=== PATIENT | female | born 1945 | race Caucasian/White ===

== ENCOUNTER → 2016-10-10 | Outpatient (CLI) | payer OTHER, MEDICARE ==
--- NOTE | 2016-10-10 16:38 | MR ---
Unenhanced MRI of the Lumbar Spine Clinical History: 71-year-old female with bilateral buttock sciatica, a prior history of an L1 compr ession fracture, and osteoporosis. Rule out nerve compression or central canal stenosis. ICD-10 Diagnostic Code: M54.30. Technique: Sagittal T1, T2, and STIR sequences were from the T10 level caudally through the sacrococ cygeal, and axial FSE T1- and T2-weighted sequences were also acquired from T12-L1 through L5-S1. Comparison Study: DEXA scan, dated July 31, 2014 (retrieved from archive status). Findings: Again noted is a moderate L1 compression fracture, with dorsal cortical buckling but no po sterior retropulsion. The overall morphology is unchanged from a lateral spine image on the DEXA sca n from 2013. There is 5 mm of L5 anterolisthesis above S1, also similar to the previous exam. There is degenerative disk desiccation at all levels. 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 The conus medullaris has a normal morphology, terminating at the L1 level. The visualized prevertebral soft tissues are normal. There is some fatty infiltration of the paraspinal musculature. T10-T11, T11-T12 levels appear normal, with no central canal or neural foraminal stenosis. At the T12-L1 level, there is the aforementioned moderate old L1 compression fracture. There is no f ocal disk herniation, or significant canal or neural foraminal impingement. At the L1-L2 level, there is no focal disk herniation, canal stenosis, or neural foraminal impingemen t. At the L2-L3 level, there is preservation of disk space height, with some mild disk desiccation. The central canal and neural foramina remain patent. There is a mild degree of bilateral facet hypertro phy. At the L3-L4 level, there is preservation of disk space height, with some mild disk desiccation and n o focal disk herniation, canal stenosis, or neural foraminal impingement. Moderate bilateral facet h ypertrophy is seen. At the L4-L5 level, there is preservation of disk space height, with some degenerative disk desiccati on and broad-based differential disk bulging. There is fyvdowtt-su-mmpxto bilateral facet hypertroph y, with some mild ligamentum flavum thickening. There is an adequate AP canal diameter, and the neur al foramina are relatively patent. At the L5-S1 level, there is the aforementioned grade 1 anterolisthesis. There is severe bilateral f acet hypertrophy, with facet joint effusions. There is broad-based circumferential disk bulging resu lting in a mild degree of central canal stenosis, and isjyvcll-yj-xxswqd bilateral neural foraminal s tenosis. The visualized upper sacrum is normal. The presacral space is normal. Impression: 1. Old moderate compression fracture involving L1 in this patient with osteoporosis, unchanged from July 2014. 2. Multilevel facet hypertrophy, most pronounced from L3-L4 through L5-S1. 3. Grade 1 anterolisthesis at L5-S1, with severe facet degenerative change and bilateral facet joint effusions. There is also broad-based circumferential disk bulging resulting in mild central canal s tenosis and tyeytcxp-fv-bulrar bilateral neural foraminal stenoses. E:JEANNETTE/vanessa
== END ==
LOC: FIMAGING 12:32
PROVIDERS: ATTEND Physician Assistant
DX: M54.30 Sciatica, unspecified side (principal); M81.0 Age-related osteoporosis without current pathological fracture

== ENCOUNTER → 2016-11-17 | Outpatient (CLI) | payer OTHER, MEDICARE | LOC: FIMAGING 14:51 | PROVIDERS: ATTEND Internal Medicine | DX: Z12.39 Encounter for other screening for malignant neoplasm of breast (principal); R92.2 Inconclusive mammogram | CPT/HCPCS: G0206 ==

== ENCOUNTER → 2016-11-20 | Outpatient (CLI) | payer OTHER, MEDICARE | LOC: FIMAGING 11:21 | PROVIDERS: ATTEND Internal Medicine | DX: M81.0 Age-related osteoporosis without current pathological fracture (principal) ==

== ENCOUNTER → 2017-03-22 | Outpatient (CLI) | payer OTHER, MEDICARE | LOC: FIMAGING 11:08 | PROVIDERS: ATTEND Surgery | DX: E21.5 Disorder of parathyroid gland, unspecified (principal); E21.3 Hyperparathyroidism, unspecified | CPT/HCPCS: 78070; A9500 ==

== ENCOUNTER 2017-04-13 09:58 | Emergency (ER) | payer OTHER, MEDICARE ==
[2017-04-13 10:04] VITALS: TEMP 98.1
--- NOTE | 2017-04-13 10:54 | EDPHY ---
H & P Stated Complaint: Not feeling well since surg 2 wks ago; lethargy,SOB, h/a, lump in throat Time Seen by Provider: 04/13/17 10:17 HPI/ROS: CHIEF COMPLAINT: Post-parathyroidectomy concerns This patient is a 72 year old female arriving with her fiancee presenting with multiple complaints following a parathyroidectomy two weeks ago at [facility] with Dr. Beck. She had been diagnosed with hypercalcemia by her primary care provider, Dr. Sutherland. She followed up with Dr. Choe, salesperson florist supplies, who recommended parathyroidectomy. Since her surgery, she has been feeling fatigued and has experienced headaches, indigestion, occasional dysphagia, and cough. She has been taking Tums for calcium replacement and two extra strength Tylenol for headache relief. She has not taken any other medications for relief of indigestion-type symptoms. She has also noted pale bowel movements. She endorses intermittent sore throat. No fever, abdominal pain , chest pain, dysuria, shortness of breath, or other associated symptoms. ROS: Her fiancee states the patient has experienced tenderness in her ankles when he massages her feet, Pain behind medial malleolus bilaterally. No calf pain or swelling. Ten point ROS performed and negative except as mentioned in HPI. - Personal History Current Tetanus Diphtheria and Acellular Pertussis (TDAP): Unsure Tetanus Vaccine Date: WITHIN 10 YRS - Medical/Surgical History PMH: 1. Parathyroidectomy 2016 2. Hypothyroid 3. Osteoporosis 4. Hysterectomy 5. Migraines 6. Cholecystectomy 7. 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 Nonsmoker. Fiancee at bedside. - Physical Exam Exam: General Appearance: Alert, no acute distress. Eyes: Pupils equal and round, no conjunctival injection, no discharge. ENT, Mouth: Mucous membranes are moist, no oropharyngeal erythema or edema. Neck: Surgical incision intact, without swelling, redness, warmth. No lymphadenopathy, supple. Trachea midline. Respiratory: Lungs are clear to auscultation; no wheezes, rales, or rhonchi. Cardiovascular: Regular rate and rhythm; no murmur, rub, or gallop. Gastrointestinal: Abdomen is soft and non tender, no masses or organomegaly, bowel sounds normal. Skin: Warm and dry, no rashes, normal color. Back: Nontender to palpation over the thoracolumbar spine. Extremities: No lower extremity edema, no calf tenderness or swelling. Neurological: Alert and oriented. Moving all four extremities easily and equally. Psychiatric: Normal affect. Constitutional: Initial Vital Signs Temperature (C) 36.7 C 04/13/17 10:00 Heart Rate 65 04/13/17 10:00 Respiratory Rate 18 04/13/17 10:00 Blood Pressure 124/74 H 04/13/17 10:00 O2 Sat (%) 98 04/13/17 10:00 O2 Delivery Mode Room Air Allergies/Adverse Reactions: alendronate sodium [From Fosamax] Allergy (Severe, Verified 04/13/17 10:05) throat closes sumatriptan succinate [From Imitrex] Allergy (Mild, Verified 04/13/17 10:00) FEELS WEIRD ibandronate sodium [From Boniva] Allergy (Unknown, Verified 04/13/17 10:05) triptylines Allergy (Unknown, Uncoded 04/13/17 10:05) Home Medications: Medication Instructions Recorded Atenolol [Tenormin 50 mg (*)] 50 mg PO 04/13/17 Atorvastatin Calcium [Lipitor 40 40 mg PO 04/13/17 mg (*)] Levothyroxine [Synthroid 100 mcg 100 mcg PO DAILY06 04/13/17 (*)] Losartan Potassium [Cozaar 25 mg 25 mg PO 04/13/17 (*)] Meloxicam [Mobic 7.5 mg] 7.5 mg PO 04/13/17 Raloxifene HCl [Evista] 60 mg PO 04/13/17 Ropinirole HCl [Requip 0.5mg] 0.5 mg PO 04/13/17 Sertraline HCl [Zoloft 25mg (*)] 25 mg PO DAILY 04/13/17 clonazePAM [klonoPIN (*)] 1 mg PO 04/13/17 Medical Decision Making ED Course/Re-evaluation: 12:[address] Choe, salesperson florist supplies. She requested labwork, which has been ordered. I also spoke with Dr. Beck and he will see the patient in the ED. I have not found anything that necessitates additional work-up. I suspect that her fatigue stems from recent surgery. No evidence of endocrinologic imbalance- -endocrinology and surgeon will follow labs. No neck edema or problems with incision. I am recommending symptomatic treatment of headache, indigestion. Dr. Beck provided reassurance. Patient discharged home with reassurance. - Data Points Laboratory Results: Laboratory Results 04/13/17 11:05 04/13/17 11:05 Departure - Departure Disposition: Home, Routine, Self-Care Clinical Impression: Fatigue Qualifiers: Fatigue type: other Qualified Code(s): R53.83 - Other fatigue Condition: Good Instructions: Fatigue (ED) Additional Instructions: Keep your scheduled follow-up appointments. Continue medications as advised. Referrals: Gilda Sutherland MD [Primary Care Provider] - As per Instructions Krishna Beck MD [Medical Doctor] - As per Instructions Report Scribed for: Nasra Joy Report Scribed by: Snow Avitia Date of Report: 04/13/17 Time of Report: 12:55 Physician Review and Approval Statement: 04/16/17 06:27 Portions of this chart were entered by a medical chemist. I, Nasra Joy, performed the HPI, MDM, physical exam. I have reviewed the chart and agree with the documentation, as evidenced by my signature.
[2017-04-13 11:16] LABS: % IMMATURE GRANULYOCYTES 0.4 % (0.0-1.1); ABSOLUTE IMMATURE GRANULOCYTES 0.04 10^3/uL (0.00-0.10); ADD DIFF? NO; ADD MORPH? NO; ADD SCAN? NO; ATYPICAL LYMPHOCYTE FLAG 10 (0-99); FRAGMENT RBC FLAG 20 (0-99); HEMATOCRIT 43.3 % (38.0-47.0); HEMOGLOBIN 14.1 g/dL (12.6-16.3); LEFT SHIFT FLG 0 (0-99); LIPEMIA HEMOLYSIS FLAG 80 (0-99); MEAN CELL HEMOGLOBIN 29.1 pg (27.9-34.1); MEAN CELL HEMOGLOBIN CONCENTR. 32.6 g/dL (32.4-36.7); MEAN CELL VOLUME 89.5 fL (81.5-99.8); PLATELET CLUMPS FLAG 10 (0-99); PLATELET COUNT 325 10^3/uL (150-400); RED BLOOD CELL COUNT 4.84 10^6/uL (4.18-5.33); RED CELL DISTRIBUTION WIDTH 13.3 % (11.5-15.2)
[2017-04-13 11:30] LABS: ANION GAP 14 mEq/L (8-16); CALCIUM 10.4 mg/dL (8.5-10.4); CARBON DIOXIDE 22 mEq/l (22-31); CHLORIDE 105 mEq/L (97-110); CREATININE 1.1 mg/dL (0.6-1.0); GLOMERULAR FILTRATION RATE 49; GLUCOSE 88 mg/dL (70-100); POTASSIUM 4.5 mEq/L (3.5-5.2); SODIUM 141 mEq/L (134-144)
[2017-04-13 12:06] VITALS: O2SAT 94
[2017-04-13 13:46] LABS: PTH INTACT NO MINERALS 70.5 pg/ml (10.8-79.4)
[2017-04-13 14:01] VITALS: BP 116/65; PULSE 65; RESP 18
== END 2017-04-13 14:01 | disposition home or self-care (01) ==
DX: R53.83 Other fatigue (principal)

== ENCOUNTER → 2017-07-21 | Outpatient (CLI) | payer OTHER, MEDICARE | LOC: FIMAGING 11:03 | PROVIDERS: ATTEND Internal Medicine | DX: Z12.31 Encounter for screening mammogram for malignant neoplasm of breast (principal) | CPT/HCPCS: G0202 ==

== ENCOUNTER 2017-08-07 15:43 | Emergency (ER) | payer OTHER, MEDICARE ==
--- NOTE | 2017-08-07 16:58 | EDPHY ---
H & P Time Seen by Provider: 08/07/17 15:57 HPI/ROS: This patient presents with chronic left shoulder pain. She has had difficulty sleeping at times last few nights due to the pain increasing without acute injury. She reports 2 months of this pain following a mechanical fall in a dimly lit room where she missed a step and landed hard on the shoulder. She did not have evaluation by a clinician at that time and due to the ongoing symptoms her fiance "talked her into coming in today" for further evaluation. She has tried meloxicam that she has for other musculoskeletal complaints with minimal improvement. Today she took Tylenol in addition at lunch with mild improvement and notes no other exacerbating factors except that the pain seems worse at night. She noticed the shoulder pain more today because they are putting up [place] decorations. Currently it is 7/10 ache. She states the location of the pain is posterior shoulder near the apex. ROS: No fevers or chills no other constitutional symptoms. Neuro: No numbness or tingling to the affected extremity. Musculoskeletal: She also has mild right shoulder ache a similar in nature but much less intensity. Cardiovascular: No discoloration to the left upper extremity. No plethora. Integumentary: No skin rash. 5 point ROS is otherwise negative. 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 General: Pleasant 72-year-old female No acute distress Eyes: Pupils equal and react to light. Extraocular motions are intact. Lungs: No respiratory distress. Cardiac: Brisk capillary refill is intact throughout. Pulses are 2+ and symmetric in the affected extremity. Extremities: Atraumatic normal except for left shoulder Left shoulder: Patient has mild tenderness the posterior shoulder. There is no deformity. She retains full range of motion of her shoulder with only minimal increase in pain with AB duction versus resistance. Clavicle is normal appearance and there is no asymmetry putting the appearance of the 2 shoulders. Skin: No rash or pallor. Neuro: Alert with no sensorimotor deficits to the left upper extremity. The axillary nerve distribution is intact. Initial differential diagnosis: Degenerative joint disease, calcific tendinitis , rotator cuff injury, impingement syndrome, pathologic fracture Constitutional: Initial Vital Signs Temperature (C) 36.6 C 08/07/17 15:48 Heart Rate 68 08/07/17 15:48 Respiratory Rate 12 08/07/17 15:48 Blood Pressure 167/88 H 08/07/17 15:48 O2 Sat (%) 95 12 15:48 O2 Delivery Mode Room Air Allergies/Adverse Reactions: alendronate sodium [From Fosamax] Allergy (Severe, Verified 08/07/17 15:56) throat closes sumatriptan succinate [From Imitrex] Allergy (Mild, Verified 08/07/17 15:56) FEELS WEIRD ibandronate sodium [From Boniva] Allergy (Unknown, Verified 08/07/17 15:56) triptylines Allergy (Unknown, Uncoded 08/07/17 15:56) Home Medications: Medication Instructions Recorded Atenolol [Tenormin 50 mg (*)] 50 mg PO 04/13/17 Atorvastatin Calcium [Lipitor 40 40 mg PO 04/13/17 mg (*)] Levothyroxine [Synthroid 100 mcg 100 mcg PO DAILY06 04/13/17 (*)] Losartan Potassium [Cozaar 25 mg 25 mg PO 04/13/17 (*)] Meloxicam [Mobic 7.5 mg] 7.5 mg PO 04/13/17 Raloxifene HCl [Evista] 60 mg PO 04/13/17 Ropinirole HCl [Requip 0.5mg] 0.5 mg PO 04/13/17 Sertraline HCl [Zoloft 25mg (*)] 25 mg PO DAILY 04/13/17 Lidocaine 5% [Lidoderm 5% Patch 1 ea TD DAILY #20 patch 08/07/17 (*)] MDM/Departure - MDM Diagnostics: Shoulder x-ray: Normal by my interpretation Imaging: I viewed and interpreted images myself ED Course/Re-evaluation: Discussion: Patient presents with shoulder plane of unclear etiology without significant radiographic abnormalities and minimal exam findings. Patient may have chronic rotator cuff injury or go deconditioning with shoulder pain. I counseled her regarding gentle physical therapy exercises for shoulder and plan to follow up with orthopedics for further evaluation. - Depart Disposition: Home, Routine, Self-Care Clinical Impression: Shoulder pain, left Qualifiers: Chronicity: acute Qualified Code(s): M25.512 - Pain in left shoulder Condition: Good Instructions: Shoulder Pain (ED) Additional Instructions: Diagnosis: Shoulder pain Plan: Continue a nonsteroidal anti-inflammatories such as Aleve or ibuprofen. Add Tylenol in addition if needed. For nighttime, consider lidocaine patch. Consider gentle rehab exercises described-minimal weight with large circles or unebbz-do-qeckv. A lso, follow up with Dr. Kerns, orthopedics for further evaluation for any ongoing symptoms. Prescriptions: Lidocaine 5% [Lidoderm 5% Patch (*)] 1 ea TD DAILY #20 patch Referrals: Gilda Sutherland MD [Primary Care Provider] - As per Instructions Stu Kerns MD [Medical Doctor] - As per Instructions
[2017-08-07 17:05] VITALS: BP 168/80; PULSE 78; RESP 14; TEMP 97.7; O2SAT 96
== END 2017-08-07 17:06 | disposition home or self-care (01) ==
LOC: CED 15:43
DX: M25.512 Pain in left shoulder (principal); I10 Essential (primary) hypertension
CPT/HCPCS: 73030-PO

== ENCOUNTER → 2018-07-22 | Outpatient (CLI) | payer OTHER, MEDICARE | LOC: CIMAGING 12:15 → FIMAGING 13:32 | PROVIDERS: ATTEND Internal Medicine | DX: Z12.31 Encounter for screening mammogram for malignant neoplasm of breast (principal); Z80.3 Family history of malignant neoplasm of breast ==

== ENCOUNTER 2018-09-24 12:30 | Emergency (ER) | payer OTHER, MEDICARE ==
[2018-09-24] MEDS ORDERED: AZITHROMYCIN 250 MG TAB PO ONE (12:53)
[2018-09-24] MEDS ORDERED: IPRATROPIUM/ALBUTEROL 3 ML DEYVIAL IH ONE (12:54)
[2018-09-24] MEDS ORDERED: BENZONATATE 100 MG CAP PO ONE (12:54)
--- NOTE | 2018-09-24 13:00 | EDPHY ---
H & P Stated Complaint: Cough since yesterday Time Seen by Provider: 09/24/18 12:46 HPI/ROS: CHIEF COMPLAINT: Cough and post tussive emesis HISTORY OF PRESENT ILLNESS: The patient is a 73-year-old female who comes to the emergency department complaining of a worsening cough over the last 3-4 days. She states that her coughs come in coughing fits and that she cannot breathe during them until they culminate in a vomiting episode. She states that she does have a history of easy vomiting. She has not felt nauseous. No diarrhea. She does not feel short of breath when she is not coughing. She has not had a fever. She reports that her granddaughter was sick last week. No abdominal pain. No chest pain. She does have a slightly sore throat that is improving and mild rhinorrhea. Severity: Moderate Modifying factors: None REVIEW OF SYSTEMS: Constitutional: denies: chills, fever, recent illness, recent injury EENTM: See HPI Respiratory: See HPI Cardiac: denies: chest pain, irregular heart rate, lightheadedness, palpitations Gastrointestinal/Abdominal: See HPI denies: abdominal pain, diarrhea, nausea, blood streaked stools Genitourinary: denies: dysuria, frequency, hematuria, pain Musculoskeletal: denies: joint pain, muscle pain Skin: denies: lesions, rash, jaundice, bruising Neurological: denies: headache, numbness, paresthesia, tingling, dizziness, weakness Hematologic/Lymphatic: denies: blood clots, easy bleeding, easy bruising Immunologic/allergic: denies: HIV/AIDS, transplant 10 systems reviewed and negative except as noted EXAM: GENERAL: Well-appearing, well-nourished and in no acute distress. HEAD: Atraumatic, normocephalic. EYES: Pupils equal round and reactive to light, extraocular movements intact, sclera anicteric, conjunctiva are normal. ENT: TMs normal, nares patent, oropharynx mild erythema without exudates. Moist mucous membranes. NECK: Normal range of motion, supple without lymphadenopathy or JVD. LUNGS: Breath sounds clear to auscultation bilaterally and equal. No wheezes rales or rhonchi. HEART: Regular rate and rhythm without murmurs, rubs or gallops. ABDOMEN: Soft, nontender, normoactive bowel sounds. No guarding, no rebound. No masses appreciated. BACK: No CVA tenderness, no spinal tenderness, step-offs or deformities EXTREMITIES: Normal range of motion, no pitting or edema. No clubbing or cyanosis. NEUROLOGICAL: Cranial nerves II through XII grossly intact. Normal speech, normal gait. 5/5 strength, normal movement in all extremities, normal sensation , normal reflexes PSYCH: Normal mood, normal affect. SKIN: Warm, dry, normal turgor, no visible rashes or lesions. Source: Patient, Family - Personal History Current Tetanus/Diphtheria Vaccine: Unsure Current Tetanus Diphtheria and Acellular Pertussis (TDAP): Unsure Tetanus Vaccine Date: WITHIN 10 YRS - Medical/Surgical History Hx Asthma: No Hx Chronic Respiratory Disease: No Hx Diabetes: No Hx Cardiac Disease: No Hx Renal Disease: No Hx Cirrhosis: No Hx Alcoholism: No Hx HIV/AIDS: No Hx Splenectomy or Spleen Trauma: No Other PMH: Osteoporosis, migraines, breast biopsies (x 3) benign,. Tubal lig, edwin, ORIF R ankle, hysterectomy, basal cell CA removed,HYPOTHYROID, parathyroidectomy March 2017 - Family History Significant Family History: No pertinent family hx - Social History Smoking Status: Never smoked Alcohol Use: None Constitutional: Initial Vital Signs Temperature (C) 37.4 C 09/24/18 12:33 Heart Rate 115 H 09/24/18 12:33 Respiratory Rate 20 09/24/18 12:33 Blood Pressure 153/86 H 09/24/18 12:33 O2 Sat (%) 95 09/24/18 12:33 O2 Delivery Mode Room Air Allergies/Adverse Reactions: alendronate sodium [From Fosamax] Allergy (Severe, Verified 08/07/17 15:56) throat closes sumatriptan succinate [From Imitrex] Allergy (Mild, Verified 08/07/17 15:56) FEELS WEIRD ibandronate sodium [From Boniva] Allergy (Unknown, Verified 08/07/17 15:56) triptylines Allergy (Unknown, Uncoded 08/07/17 15:56) Home Medications: Medication Instructions Recorded Atenolol [Tenormin 50 mg (*)] 50 mg PO 04/13/17 Atorvastatin Calcium [Lipitor 40 40 mg PO 04/13/17 mg (*)] Levothyroxine [Synthroid 100 mcg 100 mcg PO DAILY06 04/13/17 (*)] Losartan Potassium [Cozaar 25 mg 25 mg PO 04/13/17 (*)] Meloxicam [Mobic 7.5 mg] 7.5 mg PO 04/13/17 Raloxifene HCl [Evista] 60 mg PO 04/13/17 Ropinirole HCl [Requip 0.5mg] 0.5 mg PO 04/13/17 Sertraline HCl [Zoloft 25mg (*)] 25 mg PO DAILY 04/13/17 Lidocaine 5% [Lidoderm 5% Patch 1 ea TD DAILY #20 patch 08/07/17 (*)] Acetaminophen/Codeine 300/30Mg 1 - 2 each PO Q6 PRN #14 tab 09/24/18 [Tylenol #3 (RX)] Azithromycin 250 mg PO DAILY #4 tablet 09/24/18 Benzonatate [Tessalon Pearles (RX)] 100 mg PO TID PRN #20 cap 09/24/18 Medical Decision Making - Diagnostics Imaging: Discussed imaging studies w/ call manager Radiologist ED Course/Re-evaluation: The patient's symptoms sound classic for pertussis. Will start her on azithromycin and obtain chest x-ray as well as sputum cultures. Will tremor symptomatic treatment with cough. 1:50 p.m. the patient is reassured by the x-ray results. She still has a mild cough but has not been vomiting. She does not think the albuterol helped. Differential Diagnosis: Partial list of the Differential diagnosis considered include but were not limited to; pertussis, upper respiratory tract infection, bronchitis and although unlikely based on the history and physical exam, I also considered pneumonia, PE, cardiac disease. - Data Points Medications Given: Discontinued Medications Albuterol/Ipratropium (Duoneb) 3 ml IH EDNOW ONE Stop: 09/24/18 12:55 Last Admin: 09/24/18 12:59 Dose: 3 ml Azithromycin (Zithromax) 500 mg PO EDNOW ONE PRN Reason: Protocol Stop: 09/24/18 12:54 Last Admin: 09/24/18 12:58 Dose: 500 mg Benzonatate (Tessalon Pearles) 200 mg PO EDNOW ONE Stop: 09/24/18 12:55 Last Admin: 09/24/18 12:58 Dose: 200 mg Departure - Departure Disposition: Home, Routine, Self-Care Clinical Impression: Cough Acute bronchitis Qualifiers: Bronchitis organism: unspecified organism Qualified Code(s): J20.9 - Acute bronchitis, unspecified Condition: Fair Instructions: Acute Bronchitis (ED) Referrals: Gilda Sutherland MD [Primary Care Provider] - As per Instructions Prescriptions: Acetaminophen/Codeine 300/30Mg [Tylenol #3 (RX)] 1 - 2 each PO Q6 PRN #14 tab PRN Reason: *Cough Azithromycin 250 mg PO DAILY #4 tablet Benzonatate [Tessalon Pearles (RX)] 100 mg PO TID PRN #20 cap PRN Reason: Cough, Moderate
[2018-09-24 14:05] VITALS: BP 144/78
== END 2018-09-24 14:05 | disposition home or self-care (01) ==
DX: J20.9 Acute bronchitis, unspecified (principal)